=== PATIENT | male | born 1990 | race Caucasian/White ===

== ENCOUNTER 2022-12-29 14:48 | Emergency (ER) | payer OTHER ==
--- NOTE | 2022-12-29 15:11 | ED ---
General Adult HPI - General Chief complaint: Extremity Injury, Upper Stated complaint: Right hand injury Time Seen by Provider: 12/29/22 14:55 Source: patient, RN notes reviewed, old records reviewed Mode of arrival: ambulatory Limitations: no limitations - History of Present Illness Initial comments: This is a 32-year-old male presents emergency Department complaining of hand pain on the right. Patient states he punched a wall 2 days ago and he thinks he has a boxer's fracture. Patient denies any finger or wrist pain patient complains of pain at the fourth fifth metatarsal. Patient denies any other injury at this time. - Related Data Home Medications Medication Instructions Recorded Confirmed No Known Home Medications 12/29/22 12/29/22 Allergies Allergy/AdvReac Type Severity Reaction Status Date / Time No Known Allergies Allergy Verified 12/29/22 15:02 Review of Systems ROS Statement: Those systems with pertinent positive or pertinent negative responses have been documented in the HPI. ROS Other: All systems not noted in ROS Statement are negative. Past Medical History Past Medical History: No Reported History History of Any Multi-Drug Resistant Organisms: None Reported Past Surgical History: No Surgical Hx Reported Past Psychological History: Anxiety, Depression Smoking Status: Current every day smoker Past Alcohol Use History: None Reported Past Drug Use History: Cocaine General Exam - General Exam Comments Initial Comments: GENERAL Patient is well-developed and well-nourished. Patient is in mild distress. EYES Patient's pupils are equal and round. Extraocular motion is intact SKIN Unremarkable NEURO The patient is alert and oriented 3 PYSCH Patient has normal interpersonal interactions. MUSCULOSKELETAL Patient has a deformity in the fifth metatarsal and some tenderness of the fourth metatarsal. No finger tenderness is noted no wrist tenderness is noted Limitations: no limitations Course Vital Signs 12/29/22 14:52 Temperature 98 F Pulse Rate 66 Respiratory 16 Rate Blood Pressure 131/80 O2 Sat by Pulse 97 Oximetry Procedures - Orthopedic Splinting/Casting Injury #1 Side: right Upper Extremity Injury Location: hand Upper Extremity Immobilizer: ulnar gutter Medical Decision Making - Medical Decision Making Was pt. sent in by a medical professional or institution (, PA, DAY CARE DIRECTOR, urgent care, hospital, or usp...) When possible be specific @ -No Did you speak to anyone other than the patient for history (EMS, parent, family, police, friend...)? What history was obtained from this source @ -No Did you review nursing and triage notes (agree or disagree)? Why? @ -I reviewed and agree with nursing and triage notes Were old charts reviewed (outside hosp., previous admission, EMS record, old EKG, old radiological studies, urgent care reports/EKG's, usp records)? Report findings @ -No old charts were reviewed Differential Diagnosis (chest pain, altered mental status, abdominal pain women, abdominal pain men, vaginal bleeding, weakness, fever, dyspnea, syncope, headache, dizziness, GI bleed, back pain, seizure, CVA, palpatations, mental health, musculoskeletal)? @ -Musculoskeletal EKG interpreted by me (3pts min.). @ -As above X-rays interpreted by me (1pt min.). @ -I interpreted the x-ray of the hand shows a fracture of the fifth metacarpal with distal angulation of about 45. CT interpreted by me (1pt min.). @ -None done U/S interpreted by me (1pt. min.). @ -None done What testing was considered but not performed or refused? (CT, X-rays, U/S, labs)? Why? @ -None What meds were considered but not given or refused? Why? @ -None Did you discuss the management of the patient with other professionals (professionals i.e. , PA, DAY CARE DIRECTOR, lab, RT, psych nurse, licensed clinical social worker, precipitation equipment tender, teacher, dog control officer, adult protective caseworker)? Give summary @ -I spoke with Dr. Chung orthopedic surgeon and he agreed that trying to put it in alignment typically does not work he recommended a splint and follow-up with him in the office Was smoking cessation discussed for >3mins.? @ -No Was critical care preformed (if so, how long)? @ -No Were there social determinants of health that impacted care today? How? (Homelessness, low income, unemployed, alcoholism, drug addiction, transportation, low edu. Level, literacy, decrease access to med. care, [facility], rehab)? @ -No Was there de-escalation of care discussed even if they declined (Discuss DNR or withdrawal of care, Hospice)? DNR status @ -No What co-morbidities impacted this encounter? (DM, HTN, Smoking, COPD, CAD, Cancer, CVA, ARF, Chemo, Hep., AIDS, mental health diagnosis, sleep apnea, morbid obesity)? @ -None Was patient admitted / discharged? Hospital course, mention meds given and route, prescriptions, significant lab abnormalities, going to OR and other pertinent info. @ -Patient's hand was injured because he punched a wall. I x-rayed and it showed a fracture of the fifth metacarpal. I splinted the patient with OCL and he will follow-up with orthopedics Undiagnosed new problem with uncertain prognosis? @ -No Drug Therapy requiring intensive monitoring for toxicity (Heparin, Nitro, Insulin, Cardizem)? @ -No Were any procedures done? @ -No Diagnosis/symptom? @ -Fifth metacarpal fracture Acute, or Chronic, or Acute on Chronic? @ -Acute Uncomplicated (without systemic symptoms) or Complicated (systemic symptoms)? @ -Complicated Side effects of treatment? @ -No Exacerbation, Progression, or Severe Exacerbation? @ -No Poses a threat to life or bodily function? How? (Chest pain, [place], [place], pneumonia, PE, COPD, DKA, ARF, appy, cholecystitis, CVA, Diverticulitis, Homicidal, Suicidal, threat to staff... and all critical care pts) @ -No Disposition Clinical Impression: Fracture of fifth metacarpal bone Disposition: HOME SELF-CARE Instructions (If sedation given, give patient instructions): Hand Fracture (ED) Is patient prescribed a controlled substance at d/c from ED?: No Referrals: Onel Chung MD [STAFF PHYSICIAN] - 1-2 days Time of Disposition: 16:45
--- NOTE | 2022-12-29 15:51 | XR ---
EXAMINATION TYPE: XR hand complete RT DATE OF EXAM: 12/29/2022 3:38 PM INDICATION: Patient age:Male; 32 years old; Reason for study: Trauma; [facility]. COMPARISON: None TECHNIQUE: Frontal, lateral and oblique views of the right hand were obtained. FINDINGS: Acute comminuted fracture of the distal fifth metacarpal with dorsal apex angulation. Fract ure lines extend into the metacarpal head. There is surrounding soft tissue edema. No dislocation. No radiopaque foreign body. IMPRESSION: Acute comminuted distal fifth metacarpal fracture dorsal apex angulation.
[2022-12-29 17:12] VITALS: BP 135/76; PULSE 68; RESP 14; TEMP 97.9
== END 2022-12-29 17:24 | disposition home or self-care (01) ==
LOC: EC 14:48
DX: S62.306A Unspecified fracture of fifth metacarpal bone, right hand, initial encounter for closed fracture (principal); F17.200 Nicotine dependence, unspecified, uncomplicated; W22.01XA Walked into wall, initial encounter
CPT/HCPCS: 29125; 99283